=== PATIENT | female | born 1985 | race African-American/Black ===

== ENCOUNTER 2017-10-11 12:18 | Emergency (ER) | payer MEDICAID ==
[~2017-10-11] VITALS: Ht 154.9 cm; Wt 95.0 kg
[~2017-10-11 12:18] MED LIST: PREN1TAB23
[2017-10-11 23:00] VITALS: BP 138/78
[2017-10-11 23:06] LABS: CLARITY URINE CLEAR (CLEAR); COLOR URINE YELLOW (YELLOW); KETONES URINE 1+ (NEGATIVE); LEUKOCYTE ESTERASE URINE 1+ (NEGATIVE); NITRITE URINE NEGATIVE (NEGATIVE); OCCULT BLOOD URINE NEGATIVE (NEGATIVE); PROTEIN URINE NEGATIVE (NEGATIVE); SPECIFIC GRAVITY URINE 1.034 (1.005-1.030)
[2017-10-11 23:38] LABS: CHLORIDE 109 mEq/L (98-107)
[2017-10-11 23:41] LABS: BASOPHILS % 0.4 % (0.0-2.0); EOSINOPHILS % 3.7 % (0.0-5.0); HEMATOCRIT. 37.9 % (36.0-48.0); HEMOGLOBIN. 12.3 g/dL (12.0-16.0); INR 1.1; LYMPHOCYTES % 30.4 % (20.0-50.0); MEAN CORPUSCULAR HEMOGLOBIN 28.2 pg (28.0-32.0); MEAN CORPUSCULAR VOLUME 87.5 fL (81.0-99.0); MEAN PLATELET VOLUME 9.3 fl (7.4-10.4); MONOCYTES % 8.3 % (2.0-8.0); NEUTROPHILS % 57.2 % (40.0-76.0); PLATELET 168 x1000/uL (130-400); PROTHROMBIN TIME 11.4 sec (9.4-11.6); RED BLOOD CELL COUNT 4.34 mill/uL (4.2-5.4); RED CELL DISTRIBUTION WIDTH 13.5 % (11.6-14.6)
[2017-10-11 23:52] LABS: CARBON DIOXIDE 25 mEq/L (21-32)
== END 2017-10-12 00:35 | disposition home or self-care (01) ==
LOC: ER 12:50
DX: N39.0 Urinary tract infection, site not specified (principal); R51 Headache; R19.7 Diarrhea, unspecified; F17.200 Nicotine dependence, unspecified, uncomplicated
CPT/HCPCS: 36415; 80053; 81001; 81025; 83690; 85025; 85610; 99284; Z7610

== ENCOUNTER 2018-05-14 04:35 | Emergency (ER) | payer MEDICAID ==
[~2018-05-14] VITALS: Ht 175.3 cm; Wt 95.0 kg
[2018-05-14 05:24] LABS: BASOPHILS % 0.2 % (0.0-2.0); EOSINOPHILS % 1.5 % (0.0-5.0); HEMATOCRIT. 33.7 % (36.0-48.0); HEMOGLOBIN. 11.2 g/dL (12.0-16.0); LYMPHOCYTES % 16.7 % (20.0-50.0); MEAN CORPUSCULAR HEMOGLOBIN 28.3 pg (28.0-32.0); MEAN PLATELET VOLUME 9.2 fl (7.4-10.4); MONOCYTES % 7.4 % (2.0-8.0); NEUTROPHILS % 74.2 % (40.0-76.0); PLATELET 167 x1000/uL (130-400); RED BLOOD CELL COUNT 3.97 mill/uL (4.2-5.4); RED CELL DISTRIBUTION WIDTH 13.1 % (11.6-14.6)
[2018-05-14 05:29] LABS: CHLORIDE 106 mEq/L (98-107)
[2018-05-14 05:52] LABS: B-HCG QUANTITATIVE 17887 mIU/mL (<3)
[2018-05-14 07:32] VITALS: BP 126/99
== END 2018-05-14 09:46 | disposition home or self-care (01) ==
LOC: ER 05:49
DX: O02.1 Missed abortion (principal)
CPT/HCPCS: 36415; 76815; 80053; 84702; 85025; 86850; 86900; 99285

== ENCOUNTER 2018-09-30 10:37 | Emergency (ER) | payer MEDICAID ==
[~2018-09-30] VITALS: Ht 175.3 cm; Wt 95.0 kg
[2018-09-30 10:53] VITALS: BP 124/88
[2018-09-30] MEDS ORDERED: IBUPROFEN 600MG TABLET PO ONE (14:15)
[2018-09-30] MEDS ORDERED: METHYLPREDNISOLONE SOD SUCC 125 MG/2 ML VIAL IM ONE (14:15)
== END 2018-09-30 15:15 | disposition home or self-care (01) ==
LOC: ER 11:44
DX: J03.90 Acute tonsillitis, unspecified (principal); F17.200 Nicotine dependence, unspecified, uncomplicated; R05 Cough
CPT/HCPCS: 81025; 87070; 87430; 96372; 99283; J2930

== ENCOUNTER 2019-01-22 22:39 | Emergency (ER) | payer MEDICAID ==
[~2019-01-22] VITALS: Ht 175.3 cm; Wt 98.0 kg
[2019-01-23] MEDS ORDERED: ACETAMINOPHEN 325MG TABLET PO ONE (01:00)
[2019-01-23 02:19] LABS: CLARITY URINE CLOUDY (CLEAR); COLOR URINE YELLOW (YELLOW); KETONES URINE 3+ (NEGATIVE); LEUKOCYTE ESTERASE URINE 3+ (NEGATIVE); NITRITE URINE NEGATIVE (NEGATIVE); OCCULT BLOOD URINE TRACE (NEGATIVE); PH URINE 5.5 (4.5-8.0); PROTEIN URINE NEGATIVE (NEGATIVE); SPECIFIC GRAVITY URINE 1.017 (1.005-1.030)
[2019-01-23 03:16] VITALS: BP 118/71
[2019-01-24] MEDS ORDERED: ASPI-1159 PO (22:18)
[2019-01-24] MEDS ORDERED: INDO50CA15 PO (22:18)
== END 2019-01-23 03:19 | disposition home or self-care (01) ==
LOC: ER 22:39
DX: O23.42 Unspecified infection of urinary tract in pregnancy, second trimester (principal); Z3A.19 19 weeks gestation of pregnancy
CPT/HCPCS: 36415; 76815; 84702; 87077; 99284

== ENCOUNTER 2019-01-24 13:02 | Inpatient (IN) | payer MEDICAID ==
[~2019-01-24] VITALS: Ht 175.3 cm; Wt 97.5 kg
[2019-01-24 14:54] LABS: BASOPHILS % 0.4 % (0.0-2.0); EOSINOPHILS % 0.8 % (0.0-5.0); HEMATOCRIT. 35.3 % (36.0-48.0); LYMPHOCYTES % 10.3 % (20.0-50.0); MEAN CORPUSCULAR HEMOGLOBIN 28.9 pg (28.0-32.0); MEAN CORPUSCULAR VOLUME 85.3 fL (81.0-99.0); MEAN PLATELET VOLUME 8.7 fl (7.4-10.4); MONOCYTES % 1.2 % (2.0-8.0); NEUTROPHILS % 87.3 % (40.0-76.0); PLATELET 147 x1000/uL (130-400); RED BLOOD CELL COUNT 4.14 mill/uL (4.2-5.4); RED CELL DISTRIBUTION WIDTH 12.8 % (11.6-14.6)
[2019-01-24 15:00] LABS: CHLORIDE 106 mEq/L (98-107)
[2019-01-24] MEDS ORDERED: SODIUM CHLORIDE 0.9% 1,000 ML IV ONE (16:00)
[2019-01-24] MEDS ORDERED: AMPICILLIN 30MG/ML SYR IV ONE (16:30)
[2019-01-24] MEDS ORDERED: AZITHROMYCIN 500 MG in DEXT 5% WATER 250 ML IV ONE (16:30)
[2019-01-24] MEDS ORDERED: AMPICILLIN 2,000 MG in SODIUM CHLORIDE 0.9% 100 ML IV SCH (17:30)
[2019-01-24] MEDS ORDERED: INDO50CA15 PO (22:18)
[2019-01-24] MEDS ORDERED: ASPI-1159 PO (22:18)
[2019-01-24 22:36] VITALS: BP 103/64
[2019-01-24] MEDS ORDERED: DIPHENHYDRAMINE 50MG/ML VIAL IM PRN (22:45)
[2019-01-25] VITALS: BP_SYST 103; BP_SYST 131; BP_DIAS 64; BP_DIAS 79
[2019-01-25] MEDS: AMPICILLIN 2,000 MG in SODIUM CHLORIDE 0.9% 100 ML IV SCH ×4 (00:05→17:23)
[2019-01-25] MEDS ORDERED: BUTORPHANOL TARTRATE 2 MG/ML VIAL IV PRN (01:00)
[2019-01-25] MEDS: BUTORPHANOL TARTRATE 2 MG/ML VIAL IV PRN ×3 (01:48→17:23)
[2019-01-25] MEDS: LACTATED RINGERS 1,000 ML IV SCH ×2 (01:52→14:19)
[2019-01-25] MEDS ORDERED: KETOROLAC 30MG/ML VIAL IV PRN (03:15)
[2019-01-25] MEDS ORDERED: KETOROLAC 60MG/2ML VIAL IM SCH (03:15)
[2019-01-25 04:00] VITALS: BP 111/71
[2019-01-25 05:27] LABS: HEMOGLOBIN. 11.1 g/dL (12.0-16.0); MEAN CORPUSCULAR HEMOGLOBIN 28.6 pg (28.0-32.0); MEAN CORPUSCULAR VOLUME 84.8 fL (81.0-99.0); MEAN PLATELET VOLUME 9.1 fl (7.4-10.4); PLATELET 155 x1000/uL (130-400); RED BLOOD CELL COUNT 3.89 mill/uL (4.2-5.4); RED CELL DISTRIBUTION WIDTH 12.7 % (11.6-14.6)
[2019-01-25 08:00] VITALS: BP 115/72
[2019-01-25 08:08] LABS: PLATELET ESTIMATE NORMAL
[2019-01-25] MEDS: PRENATAL VIT/FE FUMARATE/FA TABLET PO SCH (09:00)
[2019-01-25 12:00] VITALS: BP 143/92
[2019-01-25] MEDS ORDERED: AZITHROMYCIN 500 MG in DEXT 5% WATER 250 ML IV SCH (14:00)
[2019-01-25] MEDS: MISOPROSTOL 200MCG TABLET PO SCH ×2 (14:19→17:23)
[2019-01-25] MEDS ORDERED: HYDROMORPHONE HCL/PF 2MG/ML CPJ IV PRN (15:49)
[2019-01-25 16:00] VITALS: BP 121/88
[2019-01-25] MEDS ORDERED: MIDAZOLAM HCL 2 MG/2 ML VIAL ONE (19:47)
[2019-01-25] MEDS ORDERED: FENTANYL CITRATE/PF 50MCG/ML 2ML VIAL ONE (19:47)
[2019-01-25] MEDS ORDERED: PROPOFOL 200MG/20ML VIAL IV ONE (19:47)
[2019-01-25] MEDS ORDERED: LIDOCAINE HCL/PF 1% 10 MG/ML 5ML VIAL ONE (19:48)
[2019-01-25 20:00] VITALS: BP 91/59
[2019-01-25] MEDS ORDERED: CITRIC ACID/SODIUM CITRATE SOLN 30ML UDC PO NR (20:30)
[2019-01-25] MEDS ORDERED: OXYTOCIN 10 UNITS/ML 1ML ONE (20:35)
[2019-01-25] MEDS ORDERED: PHENYLEPHRINE HCL 10 MG/ML 1ML (IV VIAL) IV ONE (20:39)
[2019-01-25] MEDS ORDERED: SUCCINYLCHOLINE CHLORIDE 200MG/10ML IV ONE (20:40)
[2019-01-25] MEDS ORDERED: METHYLERGONOVINE MALEATE 0.2 MG/ML ONE (21:13)
[2019-01-25] MEDS ORDERED: FENTANYL CITRATE/PF 50MCG/ML 2ML VIAL IV PRN (21:15)
[2019-01-25] MEDS ORDERED: ONDANSETRON HCL 4MG/2ML INJ IV PRN ×2 (21:15→21:30)
[2019-01-25] MEDS ORDERED: TETANUS, DIPHTHERIA, PERTUSSIS VAC/PF 0.5ML (>7YR OLD) IM ONE (21:30)
[2019-01-25] MEDS ORDERED: INFLUENZA VIRUS VACCINE(AFLURIA) 0.5ML SYR IM ONE (21:30)
[2019-01-25] MEDS ORDERED: ACETAMINOPHEN 650MG SUPP PR PRN (21:30)
[2019-01-25] MEDS ORDERED: HYDROCODONE/APAP 7.5/325MG 1 TAB TABLET PO PRN (21:30)
[2019-01-25] MEDS: HYDROMORPHONE HCL/PF 2MG/ML CPJ IV PRN ×2 (21:47→21:56)
[2019-01-25] MEDS ORDERED: MEDROXYPROGESTERONE ACETATE 150MG/ML VIAL IM NR (22:30)
[2019-01-26] VITALS: BP 96/61
[2019-01-26] MEDS: AMPICILLIN 2,000 MG in SODIUM CHLORIDE 0.9% 100 ML IV SCH ×2 (00:55→05:23)
[2019-01-26] MEDS: METHYLERGONOVINE MALEATE 0.2MG TABLET PO SCH ×2 (00:55→05:23)
[2019-01-26 04:00] VITALS: BP 101/60
[2019-01-26] MEDS: LACTATED RINGERS 1,000 ML IV SCH (05:23)
[2019-01-26 07:51] VITALS: BP 130/79
[2019-01-26] MEDS: PRENATAL VIT/FE FUMARATE/FA TABLET PO SCH (08:48)
== END 2019-01-26 09:03 | disposition home or self-care (01) | DRG 541 ==
LOC: ER 13:02 → 6EST 16:35 → ENRESERV 20:35
PROVIDERS: ADMIT Specialist; ATTEND Specialist
PROC: 10E0XZZ Delivery of Products of Conception, External Approach (ICD-10-PCS; principal; 2019-01-24)
PROC: 10D17ZZ Extraction of Products of Conception, Retained, Via Natural or Artificial Opening (ICD-10-PCS; 2019-01-25)
DX: O42.912 Preterm premature rupture of membranes, unspecified as to length of time between rupture and onset of labor, second trimester (principal); O34.32 Maternal care for cervical incompetence, second trimester; O41.02X0 Oligohydramnios, second trimester, not applicable or unspecified; O72.0 Third-stage hemorrhage; O99.334 Smoking (tobacco) complicating childbirth; Z37.9 Outcome of delivery, unspecified; Z3A.19 19 weeks gestation of pregnancy; Z72.0 Tobacco use
CPT/HCPCS: 36415; 76805; 76815; 86850; 86900; 88305; 88307; 88309; 90686; 90715; 96365; 96366; 96368; 99285; J0290; J0330; J0456; J0595; J1050; J1170; J1200; J1885; J2210; J2250; J2370; J2405; J2704; J3010; J3490; J7030; J7040; J7050; J7060; J7120